=== PATIENT | female | born 1990 | race Caucasian/White ===

== ENCOUNTER 2017-09-28 14:14 | Emergency (ER) | payer MEDICAID ==
[~2017-09-28] VITALS: Ht 165.1 cm; Wt 77.1 kg
[2017-09-28 14:27] VITALS: Ht 165.1 cm; Wt 77.1 kg
[2017-09-28 15:30] VITALS: BP 115/86
== END 2017-09-28 15:30 | disposition home or self-care (01) ==
LOC: ED 14:14
DX: T78.1XXA Other adverse food reactions, not elsewhere classified, initial encounter (principal); T78.3XXA Angioneurotic edema, initial encounter; Z91.013 Allergy to seafood; X58.XXXA Exposure to other specified factors, initial encounter
CPT/HCPCS: Q0163